=== PATIENT | female | born 1990 | race Caucasian/White ===

== ENCOUNTER 2018-02-20 20:19 | Emergency (ER) | payer BC ==
--- OUTSIDE RECORDS SUMMARY | 2018-02-20 20:21 | XMS REPORT | Clinical Summary ---
:1990 Author Organization [facility] Address [address] [place] [address] Care Team Providers Name Role Phone Wilbert Barbosa MD Primary Care Provider Allergies No Known Allergies Medications Medication Sig Dispensed Refills Start Date End Date Status loratadine (CLARITIN) Take 10 mg by 0 Active 10 mg tablet mouth daily. levETIRAcetam (KEPPRA) Take 1 tablet 60 tablet 2 11/22/2017 11/22/2018 Active 500 MG (500 mg total) tabletIndications: by mouth 2 Localization-related (two) times a idiopathic epilepsy and day. 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, not intractable, without status epilepticus (HCC) lamoTRIgine (LaMICtal) Week 1: 25mg at 70 tablet 0 12/12/2017 Active 25 MG tablet night Week 2: 25mg twice daily Week 3: 25mg in AM and 50mg in PM Week 4: 50mg twice daily Active Problems No known active problems Encounters Date Type Specialty Care Team Description 01/06/2018 Refill Neurology Vaishali Contreras, 01/04/2018 Refill Neurology Vaishali Contreras, 12/12/2017 Telephone Neurology Vaishali Contreras, 11/22/2017 Office Visit Neurology Vaishali Contreras Localization-related Melissa, 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, not intractable, without status epilepticus (Primary Dx) 10/22/2017 Telephone Neurology Vaisahli Contreras, 10/10/2017 Office Visit Neurology Vaishali oCntreras Syncope, unspecified Melissa, DO syncope type (Primary Dx) 08/15/2017 Hospital Encounter Radiology Diane, Vaishali Sin Syncope, unspecified Melissa, DO syncope type 08/13/2017 Procedure visit Neurology Diane, Vaishali Sin Syncope, unspecified Melissa, DO syncope type 08/13/2017 Transcribe Orders Cardiology Vesna Carreon MD Syncope and collapse (Primary Dx) 08/05/2017 Office Visit Neurology Diane, Vaishali Sin Syncope, unspecified Melissa, DO syncope type (Primary Dx) after 02/19/2017 Family History Medical History Relation Name Comments Migraines Maternal Grandfather Diabetes Maternal Grandmother Migraines Maternal Grandmother Hypertension Mother Migraines Mother Relation Name Status Comments Father Alive Maternal Grandfather Maternal Grandmother Mother Alive Social History Tobacco Use Types Packs/Day Years Used Date Never Smoker Smokeless Tobacco: Never Used Alcohol Use Drinks/Week oz/Week Comments No Sex Assigned at Date Recorded Not on file Job Start Date Occupation Industry Not on file Not on file Not on file Travel History Travel Start Travel End No recent travel history available. Last Filed Vital Signs Vital Sign Reading Time Taken Blood Pressure 118/68 11/22/2017 8:11 AM CDT Pulse 103 10/10/2017 8:03 AM CDT Temperature - - Respiratory Rate - - Oxygen Saturation - - Inhaled Oxygen Concentration - - Weight 59 kg (130 lb) 11/22/2017 8:11 AM CDT Height 165.1 cm (5' 5") 11/22/2017 8:11 AM CDT Body Mass Index 21.63 11/22/2017 8:11 AM CDT Plan of Treatment Health Maintenance Due Date Last Done Comments MMR VACCINES (1 of 1 - Standard 1991 series) VARICELLA VACCINES (1 of 2 - 2-dose 2003 adolescent series) CERVICAL CANCER SCREENING 2011 INFLUENZA VACCINE 11/06/2017 HEPATITIS B VACCINES Aged Out No longer eligible based on patient's age to complete this topic IPV VACCINES Aged Out No longer eligible based on patient's age to complete this topic MENINGOCOCCAL VACCINE Aged Out No longer eligible based on patient's age to complete this topic Procedures Procedure Name Priority Date/Time Associated Diagnosis Comments MRI BRAIN W WO Routine 08/15/2017 9:13 PM Syncope, unspecified Results for this CONTRAST CDT syncope type procedure are in the results section. after 02/19/2017 Results MRI Brain W Wo Contrast (08/15/2017 9:13 PM CDT) Narrative Performed At EXAMINATION:MRI BRAIN W WO CONTRAST [facility] CLINICAL HISTORY:R55 Syncope and collapse, syncope versus seizure COMPARISON:None. TECHNIQUE: Multiplanar MRI imaging with and without IV Gadolinium was performed. FINDINGS: The brain is normal in signal and configuration. There is no evidence of acute infarction, hemorrhage, mass lesion, or midline shift. Ventricles, sulci, and cisterns are age-appropriate in size and configuration. There is no extra-axial fluid collection. Flow voids of the major intracranial vessels are intact. The postcontrast images demonstrates no evidence of abnormal brain parenchymal enhancement or leptomeningeal disease. The high-resolution coronal oblique images demonstrates no evidence of mesial temporal sclerosis. There is no evidence of cortical dysplasia. Visualized paranasal sinuses and mastoid air cells are clear. Bones, orbits, and soft tissues are unremarkable. IMPRESSION: Unremarkable brain MRI with no evidence of acute infarction, hemorrhage, or mass lesion. [facility]-[id number] Procedure Note Interface, Radiology Results [facility] - 08/15/2017 9:35 PM CDT EXAMINATION: MRI BRAIN W WO CONTRAST CLINICAL HISTORY: R55 Syncope and collapse, syncope versus seizure COMPARISON: None. TECHNIQUE: Multiplanar MRI imaging with and without IV Gadolinium was performed. FINDINGS: The brain is normal in signal and configuration. There is no evidence of acute infarction, hemorrhage, mass lesion, or midline shift. Ventricles, sulci, and cisterns are age-appropriate in size and configuration. There is no extra-axial fluid collection. Flow voids of the major intracranial vessels are intact. The postcontrast images demonstrates no evidence of abnormal brain parenchymal enhancement or leptomeningeal disease. The high-resolution coronal oblique images demonstrates no evidence of mesial temporal sclerosis. There is no evidence of cortical dysplasia. Visualized paranasal sinuses and mastoid air cells are clear. Bones, orbits, and soft tissues are unremarkable. IMPRESSION: Unremarkable brain MRI with no evidence of acute infarction, hemorrhage, or mass lesion. [facility]-[id number] Performing Organization Address City/State/Zipcode Phone Number [facility] [address] [place] [address] after 02/19/2017 Insurance Payer Benefit Plan / Group Subscriber ID Type Phone Address [employer]S xxxxxxxxxxxx HMO Advance Directives Patient has advance care planning documents on file. For more information, please contact:[place] [address]
[2018-02-20 23:26] LABS: Urine Blood NEGATIVE (NEG); Urine Glucose NEGATIVE (NEG); Urine Protein NEGATIVE (NEG); Urine Specific Gravity 1.015 (1.005-1.030); Urine pH 8.5 (5.0-7.0)
--- NOTE | 2018-02-20 23:58 | ER ---
Nurse's Notes [facility] Name: Jennifer Olmos Age: 27 yrs Sex: Female : 1990 Arrival Date: 02/20/2018 Time: 20:21 Bed 25 Private MD: Diagnosis: Epilepsy and recurrent seizures Presentation: 02/20 20:26 Presenting complaint: Patient states: Reports seizure that happened at 1945 today. aj Patient is awake and alert in NAD. Not post ictal at this time. Transition of care: patient was not received from another setting of care. Onset of symptoms was February 20, 2018. Risk Assessment: Do you want to hurt yourself or someone else? Patient reports no desire to harm self or others. Initial Sepsis Screen: Does the patient meet any 2 criteria? No. Patient's initial sepsis screen is negative. Does the patient have a suspected source of infection? No. Patient's initial sepsis screen is negative. Care prior to arrival: None. 20:26 Method Of Arrival: Ambulatory aj 20:26 Acuity: RUBEN 3 aj Triage Assessment: 20:27 General: Appears in no apparent distress. comfortable, Behavior is calm, cooperative, aj appropriate for age. Pain: Denies pain. Neuro: Level of Consciousness is awake, alert, obeys commands, Oriented to person, place, time, situation, Appropriate for age Seizure activity reported prior to arrival. Respiratory: Airway is patent Respiratory effort is even, unlabored, Respiratory pattern is regular, symmetrical. Derm: Skin is intact, is healthy with good turgor, Skin temperature is warm cool. 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 - Social history:: Smoking status: Patient/guardian denies using tobacco. - Ebola Screening: : Patient negative for fever greater than or equal to 101.5 degrees Fahrenheit, and additional compatible Ebola Virus Disease symptoms Patient denies exposure to infectious person Patient denies travel to an Ebola-affected area in the 21 days before illness onset No symptoms or risks identified at this time. Screenin:00 Abuse screen: Denies threats or abuse. Denies injuries from another. rv 22:00 Nutritional screening: No deficits noted. Tuberculosis screening: No symptoms or risk rv factors identified. Fall Risk None identified. Assessment: 22:00 General: Appears in no apparent distress. comfortable, Behavior is calm, cooperative. rv 22:00 Pain: Denies pain. Neuro: Level of Consciousness is awake, alert, obeys commands, rv Oriented to person, place, time, situation. Cardiovascular: Capillary refill < 3 seconds. Respiratory: Airway is patent. GI: No signs and/or symptoms were reported involving the gastrointestinal system. : No signs and/or symptoms were reported regarding the genitourinary system. EENT: No signs and/or symptoms were reported regarding the EENT system. Derm: Skin is intact. Musculoskeletal: No signs and/or symptoms reported regarding the musculoskeletal system. 22:59 Reassessment: No changes from previously documented assessment. Patient and/or family tl3 updated on plan of care and expected duration. Pain level reassessed. Patient is alert, oriented x 3, equal unlabored respirations, skin warm/dry/pink. pt has no needs at this time, six weeks has already seen OB, second appt is on the 5th od Dec. Vital Signs: 20:27 BP 106 / 67; Pulse 87; Resp 20; Temp 98.1; Pulse Ox 100% on R/A; Weight 59.42 kg; aj Height 5 ft. 5 in. (165.10 cm); 22:59 BP 95 / 61; Pulse 89; Resp 18; Pulse Ox 100% on R/A; tl3 20:27 Body Mass Index 21.80 (59.42 kg, 165.10 cm) aj [place] Coma Score: 20:27 Eye Response: spontaneous(4). Verbal Response: oriented(5). Motor Response: obeys aj commands(6). Total: 15. ED Course: 20:21 Patient arrived in ED. ds1 20:27 Triage completed. aj 20:27 Arm band placed on left wrist. Patient placed in waiting room, Patient notified of wait aj time. 22:00 Patient has correct armband on for positive identification. Bed in low position. Call rv light in reach. Side rails up X 1. Adult w/ patient. 22:00 Pulse ox on. NIBP on. rv 22:30 Radhames, Noy, RN is Primary Nurse. tl3 22:36 Placed in gown. Side rails up X2. Seizure precautions initiated. rv 22:59 No provider procedures requiring assistance completed. tl3 23:19 Emerald Gillette FNP-C is [facility]. kb 23:19 Renato Abad MD is Attending Physician. kb Administered Medications: No medications were administered Outcome: 23:58 Patient left the ED. tl3 Signatures: Emerald Gillette FNP-C WIND TURBINE ENGINEER-CkKaia Lino, RN RN Zayda Zepeda ds1 Noy Ricci, RN RN tl3 Micheal Mauro, RN RN rv
--- NOTE | 2018-02-20 23:58 | EDPHYS ---
Physician Documentation [facility] Name: Jennifer Olmos Age: 27 yrs Sex: Female : 1990 Arrival Date: 02/20/2018 Time: 20:21 Bed 25 Private MD: ED Physician Renato Abad HPI: 02/20 23:49 This 27 yrs old Female presents to ER via Ambulatory with complaints of kb Probable Seizure - 6 wks preg. 23:49 The patient presents after having a single isolated seizure. Character of seizure(s): kb Loss of consciousness: the patient experienced loss of consciousness, Motor activity: generalized, Incontinence: none, Apnea: the patient did not experience apnea. Seizure onset: just prior to arrival. Context: occurred at home, occurred while the patient was sitting, Contributing factors: . Seizure Hx: Original onset: since childhood,\E\. Associated injury: The patient did not suffer any apparent associated injury. Current symptoms: Currently, the patient is not experiencing any symptoms, the patient feels back to baseline, no decreased level of consciousness, no confusion, no dysphasia, no headache, no paralysis, no visual changes. The patient has not experienced similar symptoms in the past. The patient has not recently seen a physician. 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 - Social history:: Smoking status: Patient/guardian denies using tobacco. - Ebola Screening: : Patient negative for fever greater than or equal to 101.5 degrees Fahrenheit, and additional compatible Ebola Virus Disease symptoms Patient denies exposure to infectious person Patient denies travel to an Ebola-affected area in the 21 days before illness onset No symptoms or risks identified at this time. ROS: 23:55 Constitutional: Negative for fever, chills, and weight loss, Cardiovascular: Negative kb for chest pain, palpitations, and edema, Respiratory: Negative for shortness of breath, cough, wheezing, and pleuritic chest pain, Abdomen/GI: Negative for abdominal pain, nausea, vomiting, diarrhea, and constipation, Back: Negative for injury and pain, MS/Extremity: Negative for injury and deformity, Skin: Negative for injury, rash, and discoloration. 23:55 Neuro: Positive for seizure activity. Exam: 23:55 Constitutional: This is a well developed, well nourished patient who is awake, alert, kb and in no acute distress. Head/Face: Normocephalic, atraumatic. Chest/axilla: Normal chest wall appearance and motion. Nontender with no deformity. No lesions are appreciated. Cardiovascular: Regular rate and rhythm with a normal S1 and S2. No gallops, murmurs, or rubs. Normal PMI, no JVD. No pulse deficits. Respiratory: Lungs have equal breath sounds bilaterally, clear to auscultation and percussion. No rales, rhonchi or wheezes noted. No increased work of breathing, no retractions or nasal flaring. Abdomen/GI: Soft, non-tender, with normal bowel sounds. No distension or tympany. No guarding or rebound. No evidence of tenderness throughout. Back: No spinal tenderness. No costovertebral tenderness. Full range of motion. Skin: Warm, dry with normal turgor. Normal color with no rashes, no lesions, and no evidence of cellulitis. MS/ Extremity: Pulses equal, no cyanosis. Neurovascular intact. Full, normal range of motion. Neuro: Awake and alert, GCS 15, oriented to person, place, time, and situation. Cranial nerves II-XII grossly intact. Motor strength 5/5 in all extremities. Sensory grossly intact. Cerebellar exam normal. Normal gait. Vital Signs: 20:27 BP 106 / 67; Pulse 87; Resp 20; Temp 98.1; Pulse Ox 100% on R/A; Weight 59.42 kg; aj Height 5 ft. 5 in. (165.10 cm); 22:59 BP 95 / 61; Pulse 89; Resp 18; Pulse Ox 100% on R/A; tl3 20:27 Body Mass Index 21.80 (59.42 kg, 165.10 cm) [place] Coma Score: 20:27 Eye Response: spontaneous(4). Verbal Response: oriented(5). Motor Response: obeys aj commands(6). Total: 15. MDM: 23:19 Patient medically screened. kb 23:53 Data reviewed: vital signs, nurses notes. Data interpreted: Pulse oximetry: on room air kb is 100 %. Interpretation: normal. 02/20 23:19 Order name: Urine Dipstick--Ancillary (enter results); Complete Time: 23:32 ms 02/20 23:19 Order name: Urine --Ancillary (enter results); Complete Time: 23:32 ms Administered Medications: No medications were administered Disposition: 02/20/18 23:56 Patient left the facility after being seen by provider. Preliminary diagnosis is Epilepsy and recurrent seizures. - Patient left due to unknown. Addendum: 02/24/2018 06:52 Co-signature as Attending Physician, Renato Abad MD I agree with the assessment and c aponte plan of care. Signatures: Dispatcher [employer] Emerald Hunter, COUNTERINTELLIGENCE SPECIALIST-C COUNTERINTELLIGENCE SPECIALIST-Kaia Wodos, RN RN Renato Torrez MD MD cha Lowrey, Tammy, RN RN tl3 Corrections: (The following items were deleted from the chart) 02/20 23:58 23:56 02/20/2018 23:56 Patient left the facility after being seen by provider. tl3 Preliminary diagnosis is Epilepsy and recurrent seizures. Reason stated they are leaving due to unknown. kb
== END 2018-02-20 23:58 | disposition left against medical advice (07) ==
LOC: ER 20:19
DX: O99.351 Diseases of the nervous system complicating pregnancy, first trimester (principal); G40.802 Other epilepsy, not intractable, without status epilepticus; Z3A.01 Less than 8 weeks gestation of pregnancy
CPT/HCPCS: 81003; 81025; 99282

== ENCOUNTER 2024-03-02 16:30 | Emergency (ER) | payer BC, SELFPAY ==
--- NOTE | 2024-03-02 16:55 | EDPHYS ---
Physician Documentation [facility] Name: Jennifer Olmos Age: 33 yrs Sex: Female : 1990 Arrival Date: 03/02/2024 Time: 16:30 Bed DX4 Private MD: ED Physician Fab Mckoy HPI: 03/02 16:47 This 33 yrs old Female presents to ER via Ambulatory with complaints of Sinus cp Congestion. 16:47 The patient or guardian reports cough, that is intermittent, with no sputum, sinus cp pressure/congestion. Onset: The symptoms/episode began/occurred 3 week(s) ago. Severity of symptoms: in the emergency department the symptoms are unchanged, despite home interventions. Associated signs and symptoms: Pertinent positives: rhinorrhea, Pertinent negatives: diarrhea, fever, vomiting. 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 - Infectious Disease History:: Denies. - Social history:: Smoking status: Patient denies any tobacco usage or history of. ROS: 16:48 Eyes: Negative for injury, pain, redness, and discharge, cp 16:48 Constitutional: Negative for body aches, chills, fever, poor PO intake, 16:48 ENT: Positive for sinus congestion, sinus pain, Negative for drainage from ear(s), ear pain, difficulty swallowing, difficulty handling secretions, 16:48 Respiratory: Positive for cough, Negative for shortness of breath, wheezing, 16:48 Abdomen/GI: Negative for abdominal pain, vomiting, diarrhea, constipation, 16:48 Neuro: Negative for altered mental status, 16:48 All other systems are negative, Exam: 16:50 Constitutional: The patient appears in no acute distress, alert, awake, non-toxic, well cp developed, well nourished, 16:50 Head/face: Sinus tenderness, that is mild, is located over the left maxillary sinus, 16:50 Eyes: Periorbital structures: appear normal, Pupils: equal, round, and reactive to light and accomodation, Extraocular movements: intact throughout, Conjunctiva: normal, no exudate, no injection, Sclera: no appreciated abnormality, Lids and lashes: appear normal, bilaterally, 16:50 ENT: External ear(s): are unremarkable, Ear canal(s): are normal, clear, TM's: dullness, bilaterally, Nose: is normal, Mouth: Lips: moist, Oral mucosa: moist, Posterior pharynx: Airway: no evidence of obstruction, patent, erythema, is not appreciated, exudate, is not appreciated, 16:50 Neck: Lymph nodes: no appreciated lymphadenopathy, 16:50 Chest/axilla: Inspection: normal, cp 16:50 Cardiovascular: Rate: normal, cp 16:50 Respiratory: the patient does not display signs of respiratory distress, Respirations: normal, no use of accessory muscles, no retractions, labored breathing, is not present, Breath sounds: are clear throughout, no decreased breath sounds, no stridor, no wheezing, 16:50 Abdomen/GI: Exam negative for discomfort, distension, guarding, Inspection: abdomen appears normal, 16:50 Back: pain, is absent, ROM is normal, Vital Signs: 16:43 BP 109 / 70; Pulse 90; Resp 19; Temp 97.6(O); Pulse Ox 100% on R/A; MAP 83 mmHg; Weight tm6 68.04 kg; Height 5 ft. 5 in. ; Pain 8/10; 17:14 BP 112 / 72; Pulse 91; Resp 18; Temp 97.6; Pulse Ox 100% on R/A; Pain 7/10; tm6 16:43 Body Mass Index 24.96 (68.04 kg, 165.1 cm) tm6 16:43 Pain Scale: Adult tm6 17:14 Pain Scale: Adult tm6 MDM: 16:47 Medical Screening Exam initiated cp 16:47 Differential Diagnosis: Bronchitis Influenza Upper Respiratory Infection Sinusitis cp Pharyngitis Otitis Media Pneumonia. 16:55 Data reviewed: vital signs, nurses notes, and as a result, I will discharge patient. cp 16:55 Counseling: I had a detailed discussion with the patient and/or guardian regarding the cp historical points, exam findings, and any diagnostic results supporting the discharge/admit diagnosis, to return to the emergency department if symptoms worsen or persist or if there are any questions or concerns that arise at home. Administered Medications: No medications were administered Disposition: 03/03 11:35 Chart complete. cp Disposition Summary: 03/02/24 16:55 Discharge Ordered Notes: Location: Home cp Problem: new cp Symptoms: have improved cp Condition: Stable cp Diagnosis - Acute sinusitis, unspecified cp - Cough cp Followup: cp - With: Private Physician - When: 1 week - Reason: symptoms continue Discharge Instructions: - Discharge Summary Sheet cp - Sinusitis, Adult cp - Cough, Adult cp Forms: - Medication Reconciliation Form cp - Antibiotic Education cp - Prescription Opioid Use cp - Patient Portal Instructions cp - Leadership Thank You Letter cp Prescriptions: - Flonase Allergy Relief 50 mcg/actuation Nasal spray, suspension - spray 1 spray INTRANASAL route every 12 hours administer into each nostril; 1 cp unit; Refills: 0, Product Selection Permitted - Amoxicillin 875 mg Oral Tablet - take 1 tablet ORAL route every 12 hours for 10 days; 20 tablet; Refills: 0, cp Product Selection Permitted - Tessalon Perles 100 mg Oral Capsule - take 1 capsule ORAL route every 8 hours As needed; 15 capsule; Refills: 0, cp Product Selection Permitted Signatures: Renato Pak PA PA cp Vane Fung RN RN tm6
--- NOTE | 2024-03-02 16:55 | ER ---
Nurse's Notes [facility] Name: Jennifer Olmos Age: 33 yrs Sex: Female : 1990 Arrival Date: 03/02/2024 Time: 16:30 Bed DX4 Private MD: Diagnosis: Acute sinusitis, unspecified;Cough Presentation: 03/02 16:44 Chief complaint: Patient states: pressure behind left eye, headache. Coronavirus tm6 screen: Client denies travel out of the [place] in the last 14 days. Ebola Screen: Patient negative for fever greater than or equal to 101.5 degrees Fahrenheit, and additional compatible Ebola Virus Disease symptoms Patient denies exposure to infectious person. Patient denies travel to an Ebola-affected area in the 21 days before illness onset. No symptoms or risks identified at this time. Initial Sepsis Screen: Does the patient meet any 2 criteria? No. Patient's initial sepsis screen is negative. Does the patient have a suspected source of infection? No. Patient's initial sepsis screen is negative. Risk Assessment: Do you want to hurt yourself or someone else? Patient reports no desire to harm self or others. Onset of symptoms was February 10, 2024. 16:44 Method Of Arrival: Ambulatory tm6 16:44 Acuity: RUBEN 4 tm6 Triage Assessment: 16:44 General: Appears in no apparent distress. Behavior is calm, cooperative. Pain: tm6 Complains of pain in left eye, head Pain currently is 8 out of 10 on a pain scale. Quality of pain is described as aching, pressure, Pain began three weeks ago. EENT: Reports pressure behind left eye. Neuro: Level of Consciousness is awake, alert, obeys commands, Oriented to person, place, time, situation. Cardiovascular: Patient's skin is warm and dry. Respiratory: Airway is patent Respiratory effort is even, unlabored, Respiratory pattern is regular, symmetrical. GI: No signs and/or symptoms were reported involving the gastrointestinal system. Abdomen is flat, non-distended. : No signs and/or symptoms were reported regarding the genitourinary system. Derm: No signs and/or symptoms reported regarding the dermatologic system. Musculoskeletal: No signs and/or symptoms reported regarding the musculoskeletal system. COSTUMER: 16:43 LMP 02/16/2024, unknown tm6 Historical: - Allergies: 16:44 No Known Allergies; tm6 - PMHx: 16:44 Seizures; tm6 - PSHx: 16:44 None; tm6 - Immunization history:: Client reports having NOT received the Covid vaccine. - Infectious Disease History:: Denies. - Social history:: Smoking status: Patient denies any tobacco usage or history of. Screenin:13 [facility] ED Fall Risk Assessment (Adult) History of falling in the last 3 months, tm6 including since admission No falls in past 3 months (0 pts) Confusion or Disorientation No (0 pts) Intoxicated or Sedated No (0 pts) Impaired Gait No (0 pts) Mobility Assist Device Used No (0 pt) Altered Elimination No (0 pt) Score/Fall Risk Level 0 - 2 = Low Risk Oriented to surroundings, Maintained a safe environment, Educated pt \T\ family on fall prevention, incl call for assistance when getting out of bed. Abuse screen: Denies threats or abuse. Denies injuries from another. Nutritional screening: No deficits noted. Tuberculosis screening: No symptoms or risk factors identified. Assessment: 17:13 Reassessment: see triage assessment. tm6 Vital Signs: 16:43 BP 109 / 70; Pulse 90; Resp 19; Temp 97.6(O); Pulse Ox 100% on R/A; MAP 83 mmHg; Weight tm6 68.04 kg; Height 5 ft. 5 in. ; Pain 8/10; 17:14 BP 112 / 72; Pulse 91; Resp 18; Temp 97.6; Pulse Ox 100% on R/A; Pain 7/10; tm6 16:43 Body Mass Index 24.96 (68.04 kg, 165.1 cm) tm6 16:43 Pain Scale: Adult tm6 17:14 Pain Scale: Adult tm6 ED Course: 16:32 Patient arrived in ED. ra3 16:38 Renato Pak PA is PHCP. cp 16:39 Fab Mckoy MD is Attending Physician. cp 16:44 Arm band placed on right wrist. tm6 16:45 Triage completed. tm6 17:13 Patient has correct armband on for positive identification. Provided Education on: use tm6 of prescriptions. 17:13 No provider procedures requiring assistance completed. Patient did not have IV access tm6 during this emergency room visit. Administered Medications: No medications were administered Medication: 17:13 VIS not applicable for this client. tm6 Outcome: 16:55 Discharge ordered by . cp 17:13 Discharged to home ambulatory, tm6 17:13 Condition: stable 17:13 Discharge instructions given to patient, Instructed on discharge instructions, follow up and referral plans. medication usage, Demonstrated understanding of instructions, follow-up care, medications, Prescriptions given X 3, 17:14 Patient left the ED. tm6 Signatures: Renato Pak PA PA cp Masterson, Tawney RN RN tm6 Valery Galvan ra3
[2024-03-02 19:54] VITALS: TEMP 97.6; O2SAT 100
[2024-03-02 19:56] VITALS: BP 112/72
== END 2024-03-02 17:14 | disposition home or self-care (01) ==
LOC: ER 16:30
DX: R05.9 Cough, unspecified (principal); J01.90 Acute sinusitis, unspecified
CPT/HCPCS: 99283

== ENCOUNTER 2024-12-30 08:21 | Emergency (ER) | payer OTHER, SELFPAY ==
[2024-12-30 09:09] LABS: Influenza A Ag Negative; Influenza B Ag Negative; SARS-CoV-2 Antigen Rapid Res Negative (Negative)
--- NOTE | 2024-12-30 10:22 | RAD REPORT ---
EXAMINATION: ONE VIEW CHEST XR CLINICAL INDICATION: COUGH TECHNIQUE: Frontal chest projection is submitted. Examination is limited by patient positioning and t echnique. COMPARISON: No prior exam. FINDINGS: The lungs are well inflated and clear. The heart is normal in size. No displaced fractures identified . IMPRESSION: No acute intrathoracic abnormalities.
--- NOTE | 2024-12-30 12:35 | ER ---
Nurse's Notes [facility] Name: Jennifer Olmos Age: 34 yrs Sex: Female : 1990 Arrival Date: 12/30/2024 Time: 08:21 Bed 16 Private MD: Diagnosis: Cough Presentation: 12/30 08:35 Chief complaint: Patient states: Cough for 2 weeks. Some N/V/D, sore throat, chills, ll1 body aches. Coronavirus screen: Client denies travel out of the [place] in the last 14 days. chills, congestion, cough unrelated to allergies, fatigue, headache, Client presents with at least one sign or symptom that may indicate coronavirus-19. Standard/surgical mask placed on the client. Ebola Screen: Patient denies travel to an Ebola-affected area in the 21 days before illness onset. Initial Sepsis Screen: Does the patient meet any 2 criteria? No. Patient's initial sepsis screen is negative. Does the patient have a suspected source of infection? No. Patient's initial sepsis screen is negative. Risk Assessment: Do you want to hurt yourself or someone else? Patient reports no desire to harm self or others. Onset of symptoms was December 16, 2024. 08:35 Method Of Arrival: Ambulatory ll1 08:35 Acuity: RUBEN 4 ll1 Historical: - Allergies: 08:35 No Known Allergies; ll1 - PMHx: 08:35 Seizures; ll1 - PSHx: 08:35 D\T\C; bladder stretched; ll1 - Immunization history:: Adult Immunizations up to date. - Infectious Disease History:: Denies. - Social history:: Smoking status: Patient denies any tobacco usage or history of. Screenin:49 [facility] ED Fall Risk Assessment (Adult) History of falling in the last 3 months, ar8 including since admission No falls in past 3 months (0 pts) Confusion or Disorientation No (0 pts) Intoxicated or Sedated No (0 pts) Impaired Gait No (0 pts) Mobility Assist Device Used No (0 pt) Altered Elimination No (0 pt) Score/Fall Risk Level 0 - 2 = Low Risk Oriented to surroundings, Maintained a safe environment. Abuse screen: Denies threats or abuse. Nutritional screening: No deficits noted. Tuberculosis screening: No symptoms or risk factors identified. Assessment: 08:49 General: Appears in no apparent distress. Behavior is calm, cooperative. Neuro: Level ar8 of Consciousness is awake, alert, obeys commands, Oriented to person, place, time, situation. Cardiovascular: Patient's skin is warm and dry. Respiratory: Reports cough that is. Respiratory: Airway is patent Trachea midline Respiratory effort is even, unlabored, Respiratory pattern is regular, symmetrical. GI: Reports nausea, vomiting. GI: Abdomen is flat. : No signs and/or symptoms were reported regarding the genitourinary system. EENT: No signs and/or symptoms were reported regarding the EENT system. Derm: No signs and/or symptoms reported regarding the dermatologic system. Musculoskeletal: No signs and/or symptoms reported regarding the musculoskeletal system. Vital Signs: 08:35 BP 119 / 85; Pulse 80; Resp 17; Temp 97.8; Pulse Ox 99% on R/A; Weight 68.04 kg; Height ll1 5 ft. 5 in. ; Pain 0/10; 09:00 BP 104 / 75; Pulse 86; Pulse Ox 100% on R/A; ar8 10:00 BP 99 / 72; Pulse 77; Resp 16; Pulse Ox 97% on R/A; ar8 11:00 BP 105 / 61; Pulse 74; Resp 16; Pulse Ox 99% on R/A; ar8 12:00 BP 110 / 76; Pulse 82; Resp 18; Pulse Ox 100% on R/A; ar8 08:35 Body Mass Index 24.96 (68.04 kg, 165.1 cm) ll1 08:35 Pain Scale: Adult ll1 ED Course: 08:24 Patient arrived in ED. cj3 08:26 Emerald Gillette FNP-C is PHCP. kb 08:26 Renato Abad MD is Attending Physician. kb 08:35 Arm band placed on Patient placed in an exam room, on a stretcher. ll1 08:36 Triage completed. ll1 08:42 Michael Gracia, ISAIAS is Primary Nurse. ar8 08:48 Group A Streptococcus Rapid Sent. ar8 08:48 COVID-19 Ag + Flu A+B Ag Sent. ar8 08:49 Bed in low position. Call light in reach. Side rails up X2. Provided Education on: plan ar8 of care, diagnostics, and estimated wait time. . 08:49 No provider procedures requiring assistance completed. ar8 10:02 Chest Single View XRAY In Process Unspecified. EDMS 12:44 Patient did not have IV access during this emergency room visit. ar8 Administered Medications: No medications were administered Medication: 08:49 VIS not applicable for this client. ar8 Outcome: 12:35 Discharge ordered by . ruth 12:44 Discharged to home ambulatory, ar8 12:44 Condition: stable 12:44 Discharge instructions given to patient, Instructed on discharge instructions, follow up and referral plans. medication usage, Demonstrated understanding of instructions, follow-up care, medications, 12:45 Patient left the ED. ar8 Signatures: Dispatcher [employer] EDNE Emerald Gillette, ZACHARY HAYNES-Drew Gillette, RN RN ll1 Paola Scott 3 Michael Gracia RN RN ar8
--- NOTE | 2024-12-30 12:35 | EDPHYS ---
Physician Documentation [facility] Name: Jennifer Olmos Age: 34 yrs Sex: Female : 1990 Arrival Date: 12/30/2024 Time: 08:21 Bed 16 Private MD: ED Physician Renato Abad HPI: 12/30 08:35 This 34 yrs old Female presents to ER via Unassigned with complaints of Cough, kb Nausea/Vomiting/Diarrhea. 08:35 Patient is a 34-year-old female who presents for cough, diarrhea, fatigue that started kb 2 weeks ago. States she initially had a sore throat. Reports chills and bodyaches, denies fever. States she had 1 episode of posttussive vomiting yesterday but has not vomited before that or since.. Historical: - Allergies: 08:35 No Known Allergies; ll1 - PMHx: 08:35 Seizures; ll1 - PSHx: 08:35 D\T\C; bladder stretched; ll1 - Immunization history:: Adult Immunizations up to date. - Infectious Disease History:: Denies. - Social history:: Smoking status: Patient denies any tobacco usage or history of. ROS: 08:35 Constitutional: As per HPI kb Exam: 08:35 Constitutional: This is a well developed, well nourished patient who is awake, alert, kb and in no acute distress. Head/Face: Normocephalic, atraumatic. ENT: Moist Mucous membranes Cardiovascular: Regular rate Respiratory: Respirations even and unlabored. No increased work of breathing. Talking in full sentences Skin: Warm, dry with normal turgor. Normal color. MS/ Extremity: Pulses equal, no cyanosis. Neurovascular intact. Full, normal range of motion. Neuro: Awake and alert, GCS 15, oriented to person, place, time, and situation. Vital Signs: 08:35 BP 119 / 85; Pulse 80; Resp 17; Temp 97.8; Pulse Ox 99% on R/A; Weight 68.04 kg; Height ll1 5 ft. 5 in. ; Pain 0/10; 09:00 BP 104 / 75; Pulse 86; Pulse Ox 100% on R/A; ar8 10:00 BP 99 / 72; Pulse 77; Resp 16; Pulse Ox 97% on R/A; ar8 11:00 BP 105 / 61; Pulse 74; Resp 16; Pulse Ox 99% on R/A; ar8 12:00 BP 110 / 76; Pulse 82; Resp 18; Pulse Ox 100% on R/A; ar8 08:35 Body Mass Index 24.96 (68.04 kg, 165.1 cm) ll1 08:35 Pain Scale: Adult ll1 MDM: 08:26 Medical Screening Exam initiated kb 12:36 Data reviewed: vital signs, nurses notes. kb 12:37 Differential Diagnosis: Bronchitis Influenza Upper Respiratory Infection Pneumonia. kb Independent interpretation of the following test(s) in the Emergency Department X-Ray: My interpretation is no pneumonia. Counseling: I had a detailed discussion with the patient and/or guardian regarding the historical points, exam findings, and any diagnostic results supporting the discharge/admit diagnosis, the need for outpatient follow up, a family practitioner, to return to the emergency department if symptoms worsen or persist or if there are any questions or concerns that arise at home. 12/30 08:29 Order name: COVID-19 Ag + Flu A+B Ag; Complete Time: 09:15 kb 12/30 08:29 Order name: Group A Streptococcus Rapid; Complete Time: 09:03 kb 12/30 09:03 Order name: Throat Culture EDMS 12/30 08:29 Order name: Chest Single View XRAY; Complete Time: 10:26 kb Administered Medications: No medications were administered Disposition Summary: 12/30/24 12:35 Discharge Ordered Notes: Location: Home kb Condition: Stable kb Diagnosis - Cough kb Followup: kb - With: Emergency Department - When: As needed - Reason: Worsening of condition Followup: kb - With: Private Physician - When: 2 - 3 days - Reason: Recheck today's complaints, Continuance of care, Re-evaluation by your physician Discharge Instructions: - Discharge Summary Sheet kb - Cough, Adult, [id number] kb Forms: - Medication Reconciliation Form kb - Antibiotic Education kb - Prescription Opioid Use kb - Patient Portal Instructions kb - Leadership Thank You Letter kb Prescriptions: - Tessalon Perles 100 mg Oral Capsule - take 1 capsule ORAL route every 8 hours As needed; 15 capsule; Refills: 0, kb Product Selection Permitted - Zithromax 500 mg Oral Tablet - take 1 tablet ORAL route once daily for 5 days; 5 tablet; Refills: 0, Product kb Selection Permitted Signatures: Dispatcher [employer] EDMS Emerald Gillette, SEATER ASSEMBLER-C Drew Jerez, RN RN ll1 Corrections: (The following items were deleted from the chart) 08:30 08:30 Chest Single View+[email or web address] ordered. JOSELITO YEE
[2024-12-30 13:07] VITALS: TEMP 97.8
[2024-12-30 13:18] VITALS: BP 110/76; O2SAT 100
== END 2024-12-30 12:45 | disposition home or self-care (01) ==
LOC: ER 08:21
DX: R05.9 Cough, unspecified (principal); R19.7 Diarrhea, unspecified; Z11.52 Encounter for screening for COVID-19
CPT/HCPCS: 36415; 71045; 87070; 87428; 99283